=== PATIENT | female | born 1970 | race Two or more races ===

== ENCOUNTER 2018-07-15 12:01 | Outpatient (CLI) | payer OTHER ==
[~2018-07-15 12:01] MED LIST: BEE WITH C1 CAP PO; CALCIO DEL MAR500 MG PO; PREDNISONE20 MG PO; PREVACID30 MG PO; [UNRECOGNIZED DRUG - OTHER] PO
== END 2018-07-15 12:03 | disposition home or self-care (01) ==
LOC: SONOGRAMA 12:01
DX: M05.19 Rheumatoid lung disease with rheumatoid arthritis of multiple sites (principal)

== ENCOUNTER 2021-09-11 09:38 | Outpatient (CLI) | payer OTHER | END 2021-09-11 09:44 | disposition home or self-care (01) | LOC: RAD 09:38 | PROVIDERS: ATTEND Physical Medicine & Rehabilitation | DX: M54.2 Cervicalgia (principal); M54.6 Pain in thoracic spine ==

== ENCOUNTER → 2022-02-26 | Outpatient (CLI) | payer OTHER | END | disposition home or self-care (01) | LOC: RAD 12:59 | PROVIDERS: ATTEND Physical Medicine & Rehabilitation | DX: M54.50 Low back pain, unspecified (principal); M25.552 Pain in left hip; W19.XXXA Unspecified fall, initial encounter ==

== ENCOUNTER 2023-07-22 13:04 | Outpatient (CLI) | payer OTHER | END 2023-07-22 13:09 | disposition home or self-care (01) | LOC: RAD 13:04 | PROVIDERS: ATTEND Physical Medicine & Rehabilitation | DX: M79.672 Pain in left foot (principal) ==

== ENCOUNTER 2024-08-17 17:39 | Emergency (ER) | payer OTHER ==
[~2024-08-17] VITALS: Ht 154.9 cm; Wt 38.6 kg
[2024-08-17] MEDS ORDERED: CLINDAMYCIN HC300 MG PO (18:13)
[2024-08-17] MEDS ORDERED: BUSPIRONE HCL30 MG PO (18:14)
[2024-08-17] MEDS ORDERED: LAMICTAL150 MG PO (18:14)
[2024-08-17] MEDS ORDERED: CLONAZEPAM0.5 MG PO (18:14)
[2024-08-17] MEDS ORDERED: KETOROLAC TROMETHAMINE 30 MG VIAL IM ONE (18:45)
[2024-08-17] MEDS ORDERED: KETOROLAC TROMETHAMINE 30 MG VIAL ONE (18:48)
== END 2024-08-17 20:25 | disposition home or self-care (01) ==
LOC: ER 17:39
DX: S70.02XA Contusion of left hip, initial encounter (principal); W18.39XA Other fall on same level, initial encounter; Y93.89 Activity, other specified; Y92.89 Other specified places as the place of occurrence of the external cause; Z91.013 Allergy to seafood; Z88.2 Allergy status to sulfonamides; F41.8 Other specified anxiety disorders; M19.90 Unspecified osteoarthritis, unspecified site; M81.8 Other osteoporosis without current pathological fracture